=== PATIENT | female | born 1965 | race Caucasian/White ===

== ENCOUNTER 2016-10-16 16:13 | Emergency (ER) | payer OTHER ==
--- NOTE | 2016-10-16 16:31 | PDOC ---
History of Present Illness - General History Source: Patient Exam Limitations: No Limitations - History of Present Illness Initial Comments: 10/16/16 16:32 The patient is a 51 year old female, with no significant past medical history who presents to the emergency department with recent head injury, nausea, and a headache for 3 days (injury occurred friday). The patient reports on friday while she was running tripping and landing on her elbow and head. She was able to walk after the fall. Denies any LOC. She reports since the fall, being symptomatic and having episodes of dizziness and fogginess. She also reports having some neck pain since the fall. She denies recent fevers, chills, or dizziness. She denies recent vomit, diarrhea or constipation. Allergies: gluten and sulfa Past surgical history: None reported. Social history: Nonsmoker. Denies EtOH and drug use. PCP: N/A <Vinicio Sanchez - Last Filed: 10/16/16 16:31> <Tabitha Cooley - Last Filed: 10/16/16 17:27> - General Chief Complaint: Injury Stated Complaint: hit head, nausea, headache Time Seen by Provider: 10/16/16 16:15 Past History <Vinicio Sanchez - Last Filed: 10/16/16 16:31> - Past Medical History Other medical history: denies - Immunization History Immunization Up to Date: Yes - Psycho/Social/Smoking Cessation Hx Anxiety: No Suicidal Ideation: No Smoking Status: No Smoking History: Never smoked Have you smoked in the past 12 months: No Number of Cigarettes Smoked Daily: 0 Information on smoking cessation initiated: No Hx Alcohol Use: No Drug/Substance Use Hx: No Substance Use Type: None <Tabitha Cooley - Last Filed: 10/16/16 17:27> - Past Medical History Allergies/Adverse Reactions: Allergies Allergy/AdvReac Type Severity Reaction Status Date / Time gluten Allergy Verified 10/16/16 16:14 Sulfa (Sulfonamide Allergy Verified 10/16/16 16:14 Antibiotics) [Sulfa(Sulfonamide Antibiotics)] Home Medications: Ambulatory Orders Acetaminophen [Tylenol] 325 mg PO PRN PRN 10/16/16 Review of Systems - Review of Systems Constitutional: No: Symptoms Reported HEENTM: No: Symptoms Reported Respiratory: No: Symptoms reported Cardiac (ROS): No: Symptoms Reported ABD/GI: Yes: Nausea. No: Abdominal Distended, Diarrhea, Vomiting : No: Symptoms Reported Musculoskeletal: Yes: Neck Pain Integumentary: No: Symptoms Reported Neurological: Yes: Headache, Dizziness. No: Numbness, Tingling Endocrine: No: Symptoms Reported <Vinicio Sanchez - Last Filed: 10/16/16 16:31> *Physical Exam - Vital Signs Last Vital Signs Temp Pulse Resp BP Pulse Ox 984 F H 57 L 16 112/75 100 10/16/16 16:14 10/16/16 16:14 10/16/16 16:14 10/16/16 16:14 10/16/16 16:14 - Physical Exam General Appearance: Yes: Nourished, Appropriately Dressed HEENT: positive: EOMI, ELIE, Normal ENT Inspection, Normal Voice, Symmetrical, TMs Normal, Pharynx Normal, Other (Tenderness on palpation and mild swelling on the forehead mostly on left side and frontal area sinuses) Neck: positive: Supple, Tender midline Respiratory/Chest: positive: Lungs Clear, Normal Breath Sounds Cardiovascular: positive: Regular Rhythm, Regular Rate Gastrointestinal/Abdominal: positive: Normal Bowel Sounds, Flat, Soft. 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 <Vinicio Sanchez - Last Filed: 10/16/16 16:31> - Discharge Dispostion Admit: No <Tabitha Cooley Quinn - Last Filed: 10/16/16 17:27> Diagnosis at time of Disposition: Headache, post-traumatic Qualifiers: Headache chronicity pattern: acute headache Intractability: not intractable Qualified Code(s): G44.319 - Acute post-traumatic headache, not intractable Cervical strain, acute Qualifiers: Encounter type: initial encounter Qualified Code(s): S16.1XXA - Strain of muscle, fascia and tendon at neck level, initial encounter - Discharge Dispostion Disposition: HOME Condition at time of disposition: Stable - Patient Instructions Printed Discharge Instructions: DI for Closed Head Injury, DI for Whiplash
[2016-10-16 16:34] VITALS: BP 112/75; PULSE 57; TEMP 984; BMI 20.5
== END 2016-10-16 17:38 | disposition home or self-care (01) ==
LOC: FER 16:13
DX: G44.319 Acute post-traumatic headache, not intractable (principal); S16.1XXA Strain of muscle, fascia and tendon at neck level, initial encounter; W18.39XA Other fall on same level, initial encounter; Y93.02 Activity, running; Y92.9 Unspecified place or not applicable
CPT/HCPCS: 70450-TC; 72050-TC; 99283-25